=== PATIENT | female | born 1980 | race Caucasian/White ===

== ENCOUNTER 2025-07-23 14:42 | Emergency (ER) | payer BC, SELFPAY ==
[2025-07-23 14:54] VITALS: BP 127/82; PULSE 96; RESP 18; TEMP 36.6; O2SAT 98; BMI 20.7
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
[2025-07-23] MEDS: lidocaine HCL 2 % JELLY (TOP) STERILE 6 ML TOPICAL (15:52)
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
--- OUTSIDE RECORDS SUMMARY | 2025-07-23 16:58 | XMS_ITS | Clinical Summary ---
Author Organization [facility] Address [address] 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 Unavailable No Ref-Primary, Physician Primary Care Provider Allergies Active AllergyReactionsCriticalityNoted DateCommentsFish AllergySwelling 09/04/2016 Cod and walleye cause lip swelling EyacjMvubRwvo97/24/2012Oxycodone-AcetaminophenNausea and Gvnlukcx15/24/2012 Medications MedicationSigDispense QuantityRefillsLast FilledStart DateEnd DateStatus Vit w/Cp-Khsymyskr-SI (PNV PO) Take by mouth daily.Active Acetaminophen-Codeine (TYLENOL/CODEINE #3) 300-30 MG per tablet Take 1-2 tablets by mouth every 6 hours as needed for pain. 20 tablet ctive Family History Medical HistoryRelationCommentsDiabetesFatherCancerMothercervical cancerRelation StatusCommentsFatherMother Social History Tobacco UseTypesPacks/DayYears UsedDateSmoking Tobacco: NeverAlcohol UseStandard Drinks/WeekCommentsYes0 (1 standard drink = 0.6 oz pure alcohol)weekends 1-2 drinksCommentsNoSex and Gender InformationValueDate RecordedSex Assigned at BirthNot on fileLegal OgzPwpkkw59/04/2012 4:33 AM CSTGender IdentityNot on fileSexual OrientationNot on fileOccupationIndustryJob Start DateJob End DateNot on fileNot on fileNot on fileNot on file Last Filed Vital Signs Vital SignReadingTime TakenCommentsBlood Tfbkksea804/8901/ 12:03 AM STACK SUPERVISOR Szfxj1965/ 12:03 AM CBJCufyniiinlj80.2 ??C (98.9 ??F)08/15/2024 8:02 PM CSTRespiratory Fqox788108/15/2024 8:02 PM CSTOxygen Gstsnmhvts73%08/16/2024 12:03 AM CSTInhaled Oxygen Concentration--Jfllrl07.4 kg (120 lb)08/15/2024 8:02 PM STACK SUPERVISOR Tffzpr369.5 cm (5' 2)08/15/2024 8:02 PM CSTBody Mass Index21.95008/15/2024 8:02 PM STACK SUPERVISOR Plan of Treatment Health MaintenanceDue DateLast DoneCommentsADVANCE CARE ZPRARVNB31/21/1979ANNUAL REVIEW OF HM KFDVWQ02 1978CT MMCJIGBRIFSY31/21/8220NZV07 1978FLEX SIG 1978sDNA (Cologuard)1978 2722BQMWQJOOWXC44/21/1989COLORECTAL CANCER VBRGVOSHT67/21/1989HEPATITIS C VWIHJJDOB88/21/1997HEPATITIS B VACCINE (1 of 3 - 19+ 3-dose series)09/24/19976929MFYIE35/10/20093795ARH43/09/2020, 10/09/2009YEARLY PREVENTIVE VISIT/06/2023, 09/05/2020HQ-2 (once per calendar year)2024OVID-19 VACCINE ( - season)2025 12/19/2020INFLUENZA VACCINE (#1)/06/2019, 05/12/2018, 05/15/2017, Additional history existsMAMMO AIITHSPVU74/, 04/21/2024, 11/12/2022, Additional history existsDTAP/TDAP/TD VACCINE (3 - Td or Tdap) , 08/14/2006, 06/11/2005DIABETES BBCJXNJOZ43/12/2028 08/15/2024, 09/29/2011, 11/22/2007ZOSTER VACCINE (1 of 2)2028HIV SCREENING Yrhznmjvx00/27/2016HPV VACCINE (No Doses Required)CompletedMENINGITIS VACCINE Aged OutNo longer eligible based on patient's age to complete this topic PNEUMOCOCCAL VACCINE: PEDIATRICS (0 to 5 YEARS) AND AT-RISK PATIENTS (6 to 49 YEARS)Aged OutNo longer eligible based on patient's age to complete this topic Procedures Procedure NamePriorityDate/TimeAssociated DiagnosisCommentsCOMPREHENSIVE METABOLIC YIQCPNLUI56/12/2025 8:08 PM STACK SUPERVISOR LIPID PHSTVVBWanhvhx41/03/2010 ABSTRACT PAP (HIM EXTERNAL RESULT)Aujhvyx1610/09/2009from Last 3 Months or Most Recently Relevant to Health Maintenance Results * (ABNORMAL) Comprehensive metabolic panel (08/15/2024 8:08 PM STACK SUPERVISOR)Component ValueRef RangeTest MethodAnalysis TimePerformed AtPathologist SignatureSodium 134(L)135 - 145 mmol/L08/15/2024 8:49 PM CST LABORATORYPotassium4.63.4 - 5.3 mmol/L08/15/2024 8:49 PM CSTRH LABORATORYComment:Specimen slightly hemolyzed. The reported potassium value may be falsely elevated. Analysis of a non- hemolyzed specimen (i.e. re-draw) may result in a lower potassium value.Carbon Dioxide (CO2)16(L)22 - 29 mmol/L08/15/2024 8:49 PM CSTRH LABORATORYAnion Gap15 7 - 15 mmol/L08/15/2024 8:49 PM CST LABORATORYUrea Glkpovga49.06.0 - 20.0 mg/dL08/15/2024 8:49 PM CSTRH LABORATORYCreatinine0.800.51 - 0.95 mg/dL 08/15/2024 8:49 PM CST LABORATORYGFR Estimate>90>60 mL/min/1.56l32308/15/2024 8:49 PM CSTRH LABORATORYComment:eGFR calculated using 2020 CKD-EPI equation. Calcium9.28.8 - 10.4 mg/dL08/15/2024 8:49 PM CSTRH LABORATORYComment:Reference intervals for this test were updated on 02/17/2024 to reflect our healthy population more accurately. There may be differences in the flagging of prior results with similar values performed with this method. Those prior results can be interpreted in the context of the updated reference intervals.Chloride 80270 - 107 mmol/L08/15/2024 8:49 PM [facility] IOFVNRBMKZYljjrbc383(H)70 - 99 mg/dL08/15/2024 8:49 PM [facility] LABORATORYAlkaline Xrhbuknajwe0169 - 150 U/L 08/15/2024 8:49 PM [facility] QRNYLKENRXVOP699 - 45 U/L08/15/2024 8:49 PM [facility] LABORATORYComment:Specimen is hemolyzed which can falsely elevate AST. Analysis of a non-hemolyzed specimen may result in a lower value.ALT08/15/2024 8:49 PM [facility] LABORATORYComment:Unsatisfactory specimen - hemolyzedProtein Total7.66.4 - 8.3 g/dL08/15/2024 8:49 PM [facility] LABORATORYAlbumin4.53.5 - 5.2 g/dL08/15/2024 8:49 PM [facility] LABORATORYBilirubin Total0.5<=1.2 mg/dL08/15/2024 8:49 PM [facility] LABORATORYSpecimen (Source)Anatomical Location / Laterality Collection Method / VolumeCollection TimeReceived TimeBloodBLOOD SPECIMEN / UnknownVenipuncture / Ccwedux2108/15/2024 8:08 PM CST08/15/2024 8:17 PM [facility] Narrative Authorizing ProviderResult TypeResult StatusTracy Ivonne Higgins MDLAB - BLOOD ORDERABLESFinal ResultPerforming OrganizationAddressCity/State/ZIP CodePhone Number [facility] [address] (1st floor, no room number) [place] [address], [facility] * (ABNORMAL) Lipid Profile (04/06/2010)ComponentValueRef RangeTest Method Analysis TimePerformed AtPathologist FoltuyrolCfdpnauhzaf311(A)115 - 199 mg/dL KQQLPXpfeyltavdxuf01qa/dLMISYSHDL Elnnptrdojy50vg/dLMISYSLDL Cholesterol Hflgxynyai03cm/dLMISYSCholesterol/HDL Ratio2.18MISYSSpecimen (Source) Anatomical Location / LateralityCollection Method / VolumeCollection Time Received TimeBlood specimen (specimen) Narrative Authorizing ProviderResult TypeResult StatusPatient ReportedLAB - BLOOD ORDERABLESFinal ResultPerforming OrganizationAddressCity/State/ZIP CodePhone Number [facility] * ABSTRACT PAP-NO CHARGE (10/09/2009) Narrative Authorizing ProviderResult TypeResult StatusPatient ReportedLAB - HIM EXTERNAL RESULTFinal ResultPerforming OrganizationAddressCity/State/ZIP CodePhone Number [facility] from Last 3 Months or Most Recently Relevant to Health Maintenance Insurance Care Teams Team MemberRelationshipSpecialtyStart DateEnd Date No Ref-Primary, Physician PCP - General08/15/24 Clinic - [facility] 09/29/11
[2025-07-23] MEDS: HYDROCODONE-ACETAMIN 5-325 MG 1 TAB PO (17:00)
[2025-07-23] MEDS: LIDOCAINE 0.5%-EPI 1:200,000 50 ML VIAL INJECTION (18:08)
== END 2025-07-23 18:25 | disposition home or self-care (01) ==
LOC: ED 16:56
PROVIDERS: Emergency Provider Emergency Medicine
DX: K64.5 Perianal venous thrombosis (principal)
CPT/HCPCS: 46083; 99283; A9270